=== PATIENT | male | born 1975 | race Caucasian/White ===

== ENCOUNTER → 2020-12-31 | Outpatient (CLI) | payer BC ==
--- NOTE | 2020-12-31 10:34 | REP ---
INDICATION: SPRAIN COMPARISON: None. TECHNIQUE: AP, lateral, bilateral oblique views right wrist. FINDINGS: The carpal bones, surrounding osseous structures, soft tissues, and joint spaces are normal. There is no evidence for acute fracture or dislocation. No subcutaneous emphysema or radiodense foreign body. IMPRESSION: Normal wrist series. No acute fracture or dislocation. <Electronically signed by Stew Noe > 12/31/20 [id number]
--- NOTE | 2020-12-31 10:35 | REP ---
INDICATION: SPRAIN COMPARISON: None. TECHNIQUE: AP and lateral views of the right forearm. FINDINGS: There is a transverse nondisplaced fracture through the distal ulnar diaphysis. Remainder of the examination appears normal. IMPRESSION: Transverse nondisplaced fracture through the distal ulnar shaft.. <Electronically signed by Stew Noe > 12/31/20 [id number]
== END ==
LOC: M WUC 09:59
PROVIDERS: ATTEND Physician Assistant
DX: S52.224A Nondisplaced transverse fracture of shaft of right ulna, initial encounter for closed fracture (principal); X58.XXXA Exposure to other specified factors, initial encounter; Y92.89 Other specified places as the place of occurrence of the external cause; Y93.89 Activity, other specified; Y99.8 Other external cause status